=== PATIENT | male | born 1975 | race Hispanic/Latino ===

== ENCOUNTER 2019-06-23 00:34 | Inpatient (IN) ==
[2019-06-23] MEDS ORDERED: ATIVAN IV ONE (00:52)
[2019-06-23] MEDS ORDERED: NS 1,000 ML IV ONE ×2 (00:54→01:55)
[2019-06-23 01:04] LABS: BASO# 0.01 X1000 (0.0-0.2); BASO% 0.1 % (0.0-0.8); EOS# 0.02 X1000 (0.0-0.7); EOS% 0.2 % (0.0-10.0); HEMOGLOBIN 13.4 g/dL (14.0-18.0); IMM GRAN# 0.13 X1000 (0.0-0.04); IMM GRAN% 1.5 % (0.0-0.5); LYMPH% 15.2 % (20.5-51.1); MCH 29.5 PG (27-31); MCHC 31.9 g/dL (33-37); MCV 92.3 FL (81-99); MONO# 0.22 X1000 (0.11-0.59); MONO% 2.6 % (1.7-9.3); MPV 10.2 FL (7.4-10.4); NEUT# 6.88 X1000 (1.4-6.5); NEUT% 80.4 % (42.2-75.2); PLT 252 X1000 (130-400); RBC 4.55 XMIL (4.7-6.1); RDW 11.8 % (11.5-14.5); WBC 8.56 X1000 (4.8-10.8)
[2019-06-23] MEDS ORDERED: ZOFRAN ONE (01:04)
[2019-06-23 01:18] LABS: INR 1.02; PROTIME 13.5 Seconds (11.0-16.0)
--- NOTE | 2019-06-23 01:33 | EKG Report ---
Test Performed on : 06/23/2019 00:46:03 AM Test Reason : pain Blood Pressure : / mmHG Vent. Rate : 102 BPM Atrial Rate : 102 BPM P-R Int : 138 ms QRS Dur : 098 ms QT Int : 370 ms P-R-T Axes : 075 045 059 degrees QTc Int : 482 ms Sinus tachycardia. Minimal voltage criteria for LVH, may be normal variant Nonspecific ST abnormality Abnormal ECG No previous ECGs available Unconfirmed Result
[2019-06-23 01:43] LABS: ACETAMINOPHEN < 1.2 ug/mL (10-30); AGAP 19; ALB/GLOB RATIO 1.9; ALBUMIN 4.5 g/dL (3.5-5.0); ALKALINE PHOSPHATASE 56 U/L (32-122); BUN 15 mg/dL (8-22); CALCIUM 8.6 mg/dL (8.8-10.2); CHLORIDE 97 mmol/L (98-107); COSMO 296; CREATININE 1.3 mg/dL (0.7-1.2); ESTIMATED GFR 49; GLUCOSE 462 mg/dL (70-104); GOT 136 U/L (10-34); GPT 156 U/L (10-44); POTASSIUM 5.7 mmol/L (3.5-5.1); SALICYLATES < 3.00 mg/dL (3-10); SODIUM 138 mmol/L (136-145); TCO2 22 mmol/L (25-35); TOTAL BILIRUBIN 0.24 mg/dL (0.20-1.00); TOTAL PROTEIN 6.9 g/dL (6.3-8.3)
[2019-06-23 01:53] LABS: ALLEN TEST YES; BE -8.8 mmoll (-3.0-3.0); BLOOD TYPE ARTERIAL; HCO3-(ACT) 17.8 mmoll (20.0-26.0); METHB 1.2 % (0.0-1.5); O2(CT) 17.6 mL/dL (15.0-23.0); PO2(98.6) 73 mmHg (60-100); SAMPLE BLOOD; SAO2 94.7 % (95.0-100.0)
[2019-06-23 01:54] LABS: PCO2(98.6) 64 mmHg (35-45); pH(98.6) 7.13 (7.35-7.45)
[2019-06-23 01:55] LABS: MODALITY NRB; O2HB 89.3 % (95.0-99.0)
[2019-06-23] MEDS ORDERED: HUMULIN R IV ONE (01:56)
--- NOTE | 2019-06-23 01:59 | PROVIDER DOCUMENTATION ---
This chart was entered by Tammy Raphael Scribe, acting as scribe for Sav Padgett MD. HPI-General Adult - General Source: EMS - History of Present Illness -Gen Adult Nature of Presenting Problems: Patient is a male who was found unresponsive in a motel room at [place] [address] in [place] who had snorted cocaine. Patient arrives with elevated blood pressure and lethargy. Fingerstick glucose on arrival was 476. Patient has spontaneous eye movement ,responds to verbal stimuli with slurred speech,and moves all extremities purposely. <Sav Padgett - Last Filed: 06/23/19 06:34> <Levi Lowery - Last Filed: 06/23/19 08:37> - General Stated Complaint: unresponsive Time Seen by Provider: 06/23/19 00:41 Review of Systems - Adult - REVIEW OF SYSTEMS - ADULT ROS:: limited per condition <Sav Padgett - Last Filed: 06/23/19 06:34> - REVIEW OF SYSTEMS - ADULT ROS:: limited per condition Constitutional: reports: no symptoms reported Eyes: reports: no symptoms reported Ears, Nose, Mouth & Throat: reports: no symptoms reported Cardiovascular: reports: no symptoms reported Respiratory: reports: no symptoms reported Gastrointestinal: reports: no symptoms reported Genitourinary: reports: no symptoms reported Musculoskeletal: reports: no symptoms reported Integumentary: reports: no symptoms reported Neurological: reports: no symptoms reported Psychiatric: reports: no symptoms reported Endocrine: reports: no symptoms reported Hematologic/Lymphatic: reports: no symptoms reported Allergic/Immunologic: reports: no symptoms reported All Other Systems: Reviewed and Negative <Levi Lowery - Last Filed: 06/23/19 08:37> Past History - Adult - PAST MEDICAL HISTORY-ADULT Review of Records: reports: Old Records Reviewed, Nursing Assessment Review, Medications Reviewed, Social history reviewed & non-contributory. Major Childhood Illnesses: reports: denies history Cardiovascular: reports: denies history Respiratory: reports: denies history Gastrointestinal: reports: denies history Obstetrical/Gynecological: reports: denies history Genitourinary: reports: denies history Musculoskeletal: reports: denies history Neurological: reports: denies history Endocrine/Immune: reports: denies history Other Conditions: reports: denies history <Sav Padgett - Last Filed: 06/23/19 06:34> Physical Exam-General - CONSTITUTIONAL General Appearance: other (agitated, uncooperative) - EYES Eyes: other (PERRL) - HEAD, EARS, NOSE, MOUTH & THROAT HENMT: normocephalic/atraumatic, moist mucous membranes - NECK Neck: supple - RESPIRATORY Respiratory: lungs clear, no respiratory distress, no accessory muscle use - CARDIOVASCULAR Cardiovascular: tachycardia - GASTROINTESTINAL (ABDOMEN) Abdominal Exam: non tender - LYMPHATIC Lymphatic: no adenopathy - MUSCULOSKELETAL Back Exam: no CVA tenderness Extremity: normal range of motion, non-tender - SKIN Integumentary: normal color, normal turgor - NEUROLOGIC Neurologic: grossly normal <Sav Padgett - Last Filed: 06/23/19 06:34> Progress - PLAN OF CARE/RESULTS Result Diagrams: 06/23/19 00:52 06/23/19 00:52 - REASSESSMENT Reassessment #1 Time Reassessed: 06:20 Status: improving Reassessment Comment: continues to be drowsy, improved heart rate and oxygen sat - EKG 1 Time of EKG reading by physician:: 00:47 EKG Read and Signed by:: Sav Padgett Rate: 102 [place]: normal Comments: no STEMI - XRAY 1 XRAY Study: Chest XRAY Interpretation: nad - CHANGE OF SHIFT REPORT (ED Provider) 1 Report Given and Care Transferred to:: Dr. Lowery Items Pending: Labs, Other (reassess patient until patient is awake and stable to d/c, recheck blood glucose) <Sav Padgett - Last Filed: 06/23/19 06:34> - PLAN OF CARE/RESULTS Progress/Plan/Lab Results: Vital Signs - 8 hr 06/23/19 00:41 06/23/19 02:00 06/23/19 03:00 Temperature 98.4 F Pulse Rate 107 H 108 H 119 H Respiratory Rate 20 20 Blood Pressure 132/100 144/92 137/90 O2 Sat by Pulse Oximetry 95 100 100 06/23/19 04:00 06/23/19 05:00 06/23/19 06:00 Temperature Pulse Rate 110 H 107 H 105 H Respiratory Rate 25 H 24 24 Blood Pressure 100/70 110/79 110/79 O2 Sat by Pulse Oximetry 99 100 99 06/23/19 07:22 Temperature Pulse Rate 98 H Respiratory Rate 23 Blood Pressure 128/87 O2 Sat by Pulse Oximetry 95 Laboratory Results - last 24 hr 06/23/19 06/23/19 06/23/19 00:41 00:52 00:52 WBC 8.56 RBC 4.55 L Hgb 13.4 L Hct 42.0 MCV 92.3 MCH 29.5 MCHC 31.9 L RDW Std Deviation 11.8 Plt Count 252 MPV 10.2 Immature Gran % (Auto) 1.5 H Neut % (Auto) 80.4 H Lymph % (Auto) 15.2 L [place] % (Auto) 2.6 Eos % (Auto) 0.2 Baso % (Auto) 0.1 Immature Gran # (Auto) 0.13 H Neut # (Auto) 6.88 H Lymph # (Auto) 1.30 [place] # (Auto) 0.22 Eos # (Auto) 0.02 Baso # (Auto) 0.01 PT INR Specimen Type Sample Site pH pCO2 pO2 HCO3 Base Excess Oxyhemoglobin ABG O2 Sat (Calculated) ABG O2 Saturation ABG Carboxyhemoglobin ABG Methemoglobin Michele Test A-a O2 Difference Total Hemoglobin Lactate Liter Flow Blood Gas Modality FiO2 % Sodium Potassium Chloride Carbon Dioxide Anion Gap BUN Creatinine Estimated GFR/1.73 m2 BUN/Creatinine Ratio Glucose POC Glucose 476 H Calculated Osmolality Calcium Total Bilirubin AST ALT Alkaline Phosphatase Total Protein Albumin Globulin Albumin/Globulin Ratio Urine Source Urine Color Urine Turbidity Urine pH Ur Specific [place] Urine Protein Ur Glucose (Stick) Ur Ketones (Stick) Urine Blood Urine Nitrite Urine Bilirubin Urobilinogen Dipstick Urine Leukocytes Urine WBC (Auto) Urine RBC (Auto) U Epithel Cells (Auto) Urine Bacteria (Auto) Salicylates Urine Opiates Screen Ur Oxycodone Screen Ur Methadone, Qual Acetaminophen Ur Barbiturates Screen Ur Phencyclidine Scrn Ur Amphetamines Screen U Benzodiazepines Scrn Urine Cocaine Screen U Cannabinoids Screen Plasma/Serum Ethyl Alc 73 H 06/23/19 06/23/19 06/23/19 00:52 00:52 01:44 WBC RBC Hgb Hct MCV MCH MCHC RDW Std Deviation Plt Count MPV Immature Gran % (Auto) Neut % (Auto) Lymph % (Auto) [place] % (Auto) Eos % (Auto) Baso % (Auto) Immature Gran # (Auto) Neut # (Auto) Lymph # (Auto) [place] # (Auto) Eos # (Auto) Baso # (Auto) PT 13.5 INR 1.02 Specimen Type ARTERIAL Sample Site R BRACHIAL pH 7.13 L* pCO2 64 H* pO2 73 HCO3 17.8 L Base Excess -8.8 L Oxyhemoglobin 89.3 L* ABG O2 Sat (Calculated) 17.6 ABG O2 Saturation 94.7 L ABG Carboxyhemoglobin 4.50 H ABG Methemoglobin 1.2 Michele Test YES A-a O2 Difference 560.0 Total Hemoglobin 14.0 Lactate 5.40 H* Liter Flow 15.0 Blood Gas Modality NRB FiO2 % 100.0 Sodium 138 Potassium 5.7 H Chloride 97 L Carbon Dioxide 22 L Anion Gap 19 BUN 15 Creatinine 1.3 H Estimated GFR/1.73 m2 49 BUN/Creatinine Ratio 12 Glucose 462 H* POC Glucose Calculated Osmolality 296 Calcium 8.6 L Total Bilirubin 0.24 AST 136 H ALT 156 H Alkaline Phosphatase 56 Total Protein 6.9 Albumin 4.5 Globulin 2.4 Albumin/Globulin Ratio 1.9 Urine Source Urine Color Urine Turbidity Urine pH Ur Specific [place] Urine Protein Ur Glucose (Stick) Ur Ketones (Stick) Urine Blood Urine Nitrite Urine Bilirubin Urobilinogen Dipstick Urine Leukocytes Urine WBC (Auto) Urine RBC (Auto) U Epithel Cells (Auto) Urine Bacteria (Auto) Salicylates < 3.00 L Urine Opiates Screen Ur Oxycodone Screen Ur Methadone, Qual Acetaminophen < 1.2 L Ur Barbiturates Screen Ur Phencyclidine Scrn Ur Amphetamines Screen U Benzodiazepines Scrn Urine Cocaine Screen U Cannabinoids Screen Plasma/Serum Ethyl Alc 06/23/19 06/23/19 06/23/19 02:46 02:46 02:55 WBC RBC Hgb Hct MCV MCH MCHC RDW Std Deviation Plt Count MPV Immature Gran % (Auto) Neut % (Auto) Lymph % (Auto) [place] % (Auto) Eos % (Auto) Baso % (Auto) Immature Gran # (Auto) Neut # (Auto) Lymph # (Auto) [place] # (Auto) Eos # (Auto) Baso # (Auto) PT INR Specimen Type Sample Site pH pCO2 pO2 HCO3 Base Excess Oxyhemoglobin ABG O2 Sat (Calculated) ABG O2 Saturation ABG Carboxyhemoglobin ABG Methemoglobin Michele Test A-a O2 Difference Total Hemoglobin Lactate Liter Flow Blood Gas Modality FiO2 % Sodium Potassium Chloride Carbon Dioxide Anion Gap BUN Creatinine Estimated GFR/1.73 m2 BUN/Creatinine Ratio Glucose POC Glucose 114 H D Calculated Osmolality Calcium Total Bilirubin AST ALT Alkaline Phosphatase Total Protein Albumin Globulin Albumin/Globulin Ratio Urine Source CLEAN CATCH Urine Color STRAW Urine Turbidity CLEAR Urine pH 5.5 Ur Specific [place] 1.009 Urine Protein TRACE A Ur Glucose (Stick) >1000 A Ur Ketones (Stick) NEGATIVE Urine Blood SMALL A Urine Nitrite NEGATIVE Urine Bilirubin NEGATIVE Urobilinogen Dipstick NORMAL Urine Leukocytes NEGATIVE Urine WBC (Auto) <10 Urine RBC (Auto) <10 U Epithel Cells (Auto) <10 Urine Bacteria (Auto) NEGATIVE Salicylates Urine Opiates Screen NONE DETECTED Ur Oxycodone Screen NONE DETECTED Ur Methadone, Qual NONE DETECTED Acetaminophen Ur Barbiturates Screen NONE DETECTED Ur Phencyclidine Scrn NONE DETECTED Ur Amphetamines Screen PRESUMPTIVE POSITIVE A U Benzodiazepines Scrn NONE DETECTED Urine Cocaine Screen NONE DETECTED U Cannabinoids Screen NONE DETECTED Plasma/Serum Ethyl Alc 06/23/19 06/23/19 06/23/19 06:34 06:37 06:50 WBC RBC Hgb Hct MCV MCH MCHC RDW Std Deviation Plt Count MPV Immature Gran % (Auto) Neut % (Auto) Lymph % (Auto) [place] % (Auto) Eos % (Auto) Baso % (Auto) Immature Gran # (Auto) Neut # (Auto) Lymph # (Auto) [place] # (Auto) Eos # (Auto) Baso # (Auto) PT INR Specimen Type ARTERIAL Sample Site L RADIAL pH 7.33 L pCO2 52 H* pO2 156 H HCO3 25.3 Base Excess 0.5 Oxyhemoglobin 96.3 ABG O2 Sat (Calculated) 20.4 ABG O2 Saturation 99.4 ABG Carboxyhemoglobin 1.70 ABG Methemoglobin 1.4 Michele Test YES A-a O2 Difference 492.0 Total Hemoglobin 14.9 Lactate 0.80 Liter Flow 15.0 Blood Gas Modality NRB FiO2 % 100.0 Sodium 142 Potassium 4.6 D Chloride 104 Carbon Dioxide 27 Anion Gap 11 BUN 11 Creatinine 1.0 Estimated GFR/1.73 m2 > 60 BUN/Creatinine Ratio 11 Glucose 77 D POC Glucose 79 Calculated Osmolality 281 Calcium 7.9 L Total Bilirubin AST ALT Alkaline Phosphatase Total Protein Albumin Globulin Albumin/Globulin Ratio Urine Source Urine Color Urine Turbidity Urine pH Ur Specific [place] Urine Protein Ur Glucose (Stick) Ur Ketones (Stick) Urine Blood Urine Nitrite Urine Bilirubin Urobilinogen Dipstick Urine Leukocytes Urine WBC (Auto) Urine RBC (Auto) U Epithel Cells (Auto) Urine Bacteria (Auto) Salicylates Urine Opiates Screen Ur Oxycodone Screen Ur Methadone, Qual Acetaminophen Ur Barbiturates Screen Ur Phencyclidine Scrn Ur Amphetamines Screen U Benzodiazepines Scrn Urine Cocaine Screen U Cannabinoids Screen Plasma/Serum Ethyl Alc Orders Category Date Time Status Cardiac Monitoring DIRECTED Care 06/23/19 00:50 Active FSBS/Accucheck Result Q1H Care 06/23/19 01:56 Active Restraint Init/Renew Violent ONCE Care 06/23/19 00:51 Active Regular Diet Diet 06/23/19 06:47 Active CHEST-PORTABLE [RAD] Stat Exams 06/23/19 00:[address] HEAD W/O CONTRAST [CT] Stat Exams 06/23/19 00:55 Completed ABG [RESP] Routine Lab 06/23/19 01:44 Completed ABG [RESP] Routine Lab 06/23/19 06:34 Completed ACETAMINOPHEN [TDM] Stat Lab 06/23/19 00:52 Completed ALCOHOL BLOOD Stat Lab 06/23/19 00:52 Completed BMP [BASIC METABOLIC PANEL] [CHEM] Stat Lab 06/23/19 06:50 Completed CBC WITH ELECTRONIC DIFF [HEME] Stat Lab 06/23/19 00:52 Completed CMP [COMPREHENSIVE METABOLIC PANEL] [CHEM] Stat Lab 06/23/19 00:52 Completed PT [PROTIME WITH INR] [COAG] Stat Lab 06/23/19 00:52 Completed SALICYLATES [TDM] Stat Lab 06/23/19 00:52 Completed UA NIMS W/REFLEX CULT [URINALYSIS] Stat Lab 06/23/19 02:46 Completed URINE DRUG SCREEN Stat Lab 06/23/19 02:46 Completed 0.9% Sodium Chloride Inj [Ns] 1,000 ml Med 06/23/19 00:54 Discontinued IV 999 mls/hr 0.9% Sodium Chloride Inj [Ns] 1,000 ml Med 06/23/19 01:55 Discontinued IV 999 mls/hr Insulin Human Regular [Humulin R] Med 06/23/19 01:56 Discontinued 12 unit IV NOW ONE Lorazepam [Ativan] Med 06/23/19 00:52 Discontinued 1 mg IV NOW ONE Ondansetron [Zofran] Med 06/23/19 01:04 Discontinued 4 mg .ROUTE .STK-MED ONE EKG [EKG] Stat Ther 06/23/19 00:58 Draft Result Diagrams: 06/23/19 00:52 06/23/19 06:50 - REASSESSMENT Reassessment #2 Time Reassessed: 08:35 Status: improving (Seen and examined by me. Case discussed with Dr. Padgett at shift change. DARYN Bright hospitalist here for admission) - CONSULTS/PCP/HOSPITALIST Notification #1 *Consult/PCP/Hospitalist*: Yefri Time Discussed: 08:36 Consult Disposition: Will see in ED, Admit <Levi Lowery - Last Filed: 06/23/19 08:37> Departure - Departure Certified Medical Emergency: Emergent <Sav Padgett - Last Filed: 06/23/19 06:34> - Departure Date of Disposition Decision: 06/23/19 Time of Disposition Decision: 08:36 - Critical Care Note This patient required my direct & personal management of CC.: No <Levi Lowery - Last Filed: 06/23/19 08:37> - Departure DIAGNOSIS: Cocaine abuse, Hyperglycemia, Alcohol use disorder, Acute respiratory acidosis Altered mental state Qualifiers: Altered mental status type: unspecified Qualified Code(s): R41.82 - Altered mental status, unspecified Disposition: ADMITTED INPATIENT 09 Condition: Stable Referrals and Follow-Ups: None,PCP [NON-STAFF PROVIDER] - Attestation - Physician/ MANNY Attestation Patient care was provided by Advanced Practice Provider:: No The physician spent face to face time with patient:: Yes Advanced Practice Provider documentation review:: Supervising physician onsite and consulted in the evaluation and care of this patient. The physician did have a face to face encounter with the patient. <Sav Padgett - Last Filed: 06/23/19 06:34> - Physician/ MANNY Attestation Patient care was provided by Advanced Practice Provider:: No The physician spent face to face time with patient:: Yes Advanced Practice Provider documentation review:: Supervising physician onsite and consulted in the evaluation and care of this patient. The physician did have a face to face encounter with the patient. <Levi Lowery - Last Filed: 06/23/19 08:37> This chart was documented by the indicated scribe, (Tammy Raphael Scribe) and accurately reflects the services I performed and decisions made by me, Sav Padgett MD, as attested by the provider's signature.
[2019-06-23 02:56] LABS: URINE SOURCE CLEAN CATCH
[2019-06-23 03:01] LABS: BILIRUBIN URINE NEGATIVE (NEGATIVE); BLOOD URINE SMALL (NEGATIVE); COLOR STRAW; GLUCOSE URINE >1000 mg/dL (NEGATIVE); KETONE URINE NEGATIVE (NEGATIVE); LEUKOCYTES URINE NEGATIVE (NEGATIVE); NITRITE URINE NEGATIVE (NEGATIVE); PH URINE 5.5; PROTEIN URINE TRACE mg/dL (NEGATIVE); SP GRAVITY URINE 1.009; TURBIDITY URINE CLEAR (CLEAR); UR EPITHELIAL CELLS <10 /HPF (<10); URINE BACTERIA NEGATIVE /HPF; URINE RBC <10 /HPF (<10); URINE WBC <10 /HPF (<10); UROBILINOGEN URINE NORMAL (NORMAL)
[2019-06-23 03:39] LABS: UR AMPHETAMINES QUAL PRESUMPTIVE POSITIVE (NONE DETECT); UR BARBITUATES QUAL NONE DETECTED (NONE DETECT); UR BENZODIAZEPIN QUAL NONE DETECTED (NONE DETECT); UR CANNABINOIDS QUAL NONE DETECTED (NONE DETECT); UR COCAINE QUAL NONE DETECTED (NONE DETECT); UR METHADONE QUAL NONE DETECTED (NONE DETECT); UR OPIATES QUAL NONE DETECTED (NONE DETECT); UR OXYCODONE QUAL NONE DETECTED (NONE DETECT); UR PCP QUAL NONE DETECTED (NONE DETECT)
--- NOTE | 2019-06-23 06:28 | Diag Imaging Result Doc PS360 ---
CT HEAD W/O CONTRAST - 06/23/2019 INDICATION: AMS COMPARISON: None FINDINGS: The ventricles and sulci are normal in size and contour. No intracranial mass or hemorrhage. The skull is intact. The sinuses mastoids and middle ears are clear. IMPRESSION: Negative exam. This exam was performed using automated exposure control, adjustment of mA or kV according to patient size, and/or use of iterative reconstruction technique Electronically signed by Joshua Walter 06/23/2019 6:25 AM
[2019-06-23 06:45] LABS: ALLEN TEST YES; BE 0.5 mmoll (-3.0-3.0); BLOOD TYPE ARTERIAL; HCO3-(ACT) 25.3 mmoll (20.0-26.0); METHB 1.4 % (0.0-1.5); O2(CT) 20.4 mL/dL (15.0-23.0); O2HB 96.3 % (95.0-99.0); PO2(98.6) 156 mmHg (60-100); SAMPLE BLOOD; SAO2 99.4 % (95.0-100.0); THB 14.9 g/dL (11.5-17.4); pH(98.6) 7.33 (7.35-7.45)
[2019-06-23 06:54] LABS: MODALITY NRB; PCO2(98.6) 52 mmHg (35-45)
[2019-06-23 07:38] LABS: AGAP 11; BUN 11 mg/dL (8-22); CALCIUM 7.9 mg/dL (8.8-10.2); CHLORIDE 104 mmol/L (98-107); COSMO 281; ESTIMATED GFR > 60; GLUCOSE 77 mg/dL (70-104); POTASSIUM 4.6 mmol/L (3.5-5.1); SODIUM 142 mmol/L (136-145); TCO2 27 mmol/L (25-35)
--- NOTE | 2019-06-23 07:44 | Diag Imaging Result Doc PS360 ---
EXAM: CHEST-PORTABLE INDICATION: AMS TECHNIQUE: One view COMPARISON: None. FINDINGS: Inspiration is suboptimal. The lungs are grossly clear. There is no discrete pleural fluid collection or pneumothorax. The cardiomediastinal silhouette and central vasculature are grossly unremarkable. IMPRESSION: No evidence of acute pathology by plain radiograph. Electronically signed by Jonh Kent 06/23/2019 7:41 AM
[2019-06-23 09:12] LABS: HEMOGLOBIN A1C 5.3 % (4.8-6.0)
[2019-06-23] MEDS ORDERED: TYLENOL PO PRN (09:44)
[2019-06-23] MEDS ORDERED: ZOFRAN IV PRN (09:44)
[2019-06-23] MEDS: LEVAQUIN 750 MG/D5W 750 MG/150 ML IVPB IV SCH (10:01)
[2019-06-23] MEDS: NS 1,000 ML IV SCH (10:02)
[2019-06-23 10:05] LABS: EOS# 0.03 X1000 (0.0-0.7); EOS% 0.3 % (0.0-10.0); HEMATOCRIT 45.1 % (42.0-52.0); HEMOGLOBIN 14.9 g/dL (14.0-18.0); IMM GRAN# 0.03 X1000 (0.0-0.04); IMM GRAN% 0.3 % (0.0-0.5); LYMPH# 0.67 X1000 (1.2-3.4); LYMPH% 5.9 % (20.5-51.1); MCH 29.8 PG (27-31); MCV 90.2 FL (81-99); MONO% 5.2 % (1.7-9.3); MPV 10.2 FL (7.4-10.4); NEUT# 10.11 X1000 (1.4-6.5); NEUT% 88.3 % (42.2-75.2); PLT 229 X1000 (130-400); RDW 12.1 % (11.5-14.5); WBC 11.44 X1000 (4.8-10.8)
[2019-06-23 10:32] LABS: AGAP 8; BUN 10 mg/dL (8-22); CALCIUM 8.3 mg/dL (8.8-10.2); CHLORIDE 100 mmol/L (98-107); COSMO 274; CREATININE 0.9 mg/dL (0.7-1.2); ESTIMATED GFR > 60; GLUCOSE 83 mg/dL (70-104); POTASSIUM 4.6 mmol/L (3.5-5.1); SODIUM 138 mmol/L (136-145); TCO2 30 mmol/L (25-35)
--- NOTE | 2019-06-23 10:37 | Diag Imaging Result Doc PS360 ---
CHEST-2 VIEWS - 06/23/2019 INDICATION: ?pneumonia COMPARISON: 1:20 AM FINDINGS: There are extensive bilateral central and basilar infiltrates. Heart size remains top normal. No pneumothorax or pleural effusion. IMPRESSION: Extensive bilateral infiltrates compatible with multilobar pneumonia or viral infection. Electronically signed by Joshua Walter 06/23/2019 10:35 AM
[2019-06-23 10:42] LABS: LYMPHS 5 % (21-51); MONO 3 % (1-9); SEGS 92 % (42-75)
--- NOTE | 2019-06-23 10:45 | HISTORY AND PHYSICAL ---
CHIEF COMPLAINT: Unresponsive. HISTORY OF PRESENT ILLNESS: This is a 44-year-old gentleman who was found unresponsive in a motel room in [place] by his friends. The friends stated that the patient had snorted cocaine. It is documented in the triage that [facility] reported friends did CPR on the scene prior to their arrival. It is documented that the patient was given 2 mg of Narcan per [facility]. He arrived to the ED with 100% non-rebreather mask with a nasal trumpet in place. The patient removed the nasal trumpet and the non-rebreather shortly after arriving in the ER. The patient woke up after arrival to the ER. He reportedly admitted that he drank alcohol, took pain pills and snorted cocaine, although his drug screen was only presumptive positive for amphetamines. At the time of my exam, the patient is awake, he is alert. He states that he drank alcohol when asked how much, he states "a lot over the weekend". He denies taking any pills or snorting any pills. He did state that he got "some of those little bottles at the [employer] and drank them", although he is unable to tell with the name of the little bottles. He denies a prior drug history use. He denies any prior health history are any regular medications. PAST MEDICAL HISTORY: He denies. PAST SURGICAL HISTORY: He denies. SOCIAL HISTORY: He denies tobacco use. He does state he drinks alcohol after working on weekends. ALLERGIES: He denies any allergies. HOME MEDICATION: He denies. REVIEW OF SYSTEMS: Discussed with the patient with pertinent positives stated in HPI. He denied any syncope, dizziness, any chest pain or palpitations, any fever, chills, shortness of breath, any PND, orthopnea, any nausea, vomiting, diarrhea, constipation, black or bloody vomitus or stools, hematuria, dysuria, frequency or urgency. PHYSICAL EXAMINATION: GENERAL: This is a 44-year-old gentleman who is lying on the bed in the emergency room, in no distress. VITAL SIGNS: Blood pressure is 128/87 with a heart rate of 106, respirations are 20 to 22, temperature is 98.3 with O2 saturation that are 90 to 94 percent on 2 L nasal cannula, they are 87 to 88 percent on room air. EYES: Pupils equal, round, react to light. EOMs are intact. Sclerae anicteric. HEENT: Head is normocephalic, atraumatic. Mucous membranes are moist. NECK: Supple with trachea midline. CARDIOVASCULAR: Regular rate and rhythm. He is tachycardic. S1 and S2 appreciated. No murmur. He has no lower extremity edema. Peripheral pulses palpable x4 extremities. PULMONARY: Breath sounds are diminished throughout with right greater than left. He does have some rhonchi in the right upper and middle lobes that do not clear to cough. Chest rises and falls symmetrically with respiration. Chest wall is nontender to palpation. GASTROINTESTINAL: Abdomen is soft, nontender, nondistended with bowel sounds in all 4 quadrants. GENITOURINARY: No CVA and nor suprapubic tenderness. NEUROLOGIC: He is alert and oriented. SKIN: Warm and dry. LABORATORY DATA: WBC is 8.5 with hemoglobin 13.4, hematocrit 42, and platelets of 252,000. INR is 1.02. Sodium 138, potassium 5.7, and BUN 15, creatinine 1.3 with a glucose of 462. AST is 136, ALT 156, alkaline phosphatase is 56. Urinalysis is essentially negative. Urine drug screen is presumptive positive for amphetamines. Blood alcohol is 73 with salicylate less than 3 and acetaminophen less than 1.2. IMAGIN. CT of the head revealed negative exam, ventricles and sulci are normal in size and contour. No intracranial mass or hemorrhage. The skull is intact. Sinus, mastoids and middle ears are clear. 2. Next chest x-ray revealed no evidence of acute pathology. Lungs are grossly clear. Inspiration is suboptimal. There is no discrete pleural fluid collection or pneumothorax. ASSESSMENT AND PLAN: 1. Unresponsive. This is resolved. 2. Alcohol use and abuse. monitor for withdrawal. 3. Acute hypoxemic respiratory failure. 4. Acute hypercapnic respiratory failure. continue with supplemental oxygen. 5. Acute hypercapnic respiratory failure number. 6. Questionable illicit drug use in a patient who admitted to taking cocaine and pain medication, whose drug screen is presumptive positive for amphetamines. telemetry. 7. Questionable pneumonia. possible aspiration given the reported events leading to the ER. He continues to be hypoxemic - requiring O2 with rhonchi. Repeat a CBC and a CMP and CXR. Antibiotic coverage of Levaquin at present. 8. Hyperglycemia. The patient states he has never been diagnosed as having diabetes or told he had high blood sugar. Check hemoglobin A1c as well as pattern blood glucoses. 9. Start incentive spirometer q.4 hours. 10. Further treatments pending hospital course. Dictated by DARYN Haro for Joel Garcia MD cc: DARYN Haro MD [facility]
[2019-06-23] MEDS: FLAGYL 500 MG/NS 500 MG/100 ML IVPB IV SCH ×2 (13:54→20:59)
[2019-06-23 15:31] LABS: CK INDEX 1.6 (0.0-2.5); CK-MB 12.39 ng/mL (0.0-5.0)
--- NOTE | 2019-06-23 16:51 | HISTORY AND PHYSICAL ---
SUBJECTIVE: Briefly, this is a 44-year-old male, I do not think he really has major medical problems. He is here from [facility]. He has been here for about 2 to 3 months. He is working construction. Reportedly, there was a concern he was snorting cocaine, then he became unresponsive. He was given CPR. He came in. He was somewhat hypoxic. His initial x-ray was negative, but the repeat had interstitial infiltrates was proBNP is mildly elevated at 301 but nonspecific. His troponin was elevated and the MB was elevated, but I do not know if this is related to his troponin coming to the myocardial issues. PLAN: Will be to treat for possible pneumonia, aspiration type. He has not had a fever or anything to that effect. We will get echo, serial enzymes. Cardiology consult if needed. DISPOSITION: Disposition pending clinical status. cc: Joel Garcia MD
--- NOTE | 2019-06-23 18:02 | Diag Imaging Result Doc PS360 ---
CT THORAX W/CONTRAST - 06/23/2019 INDICATION: hypoxia COMPARISON: Prior chest x-ray FINDINGS: There is no adenopathy. Heart and great vessels are normal. Upper abdominal images are normal. There are extensive bilateral multilobar infiltrates involving every lobe. This is identical to the recent chest x-ray. No pneumothorax or pleural effusion. Bones are intact and well mineralized. IMPRESSION: Extensive bilateral infiltrates. Compatible with pneumonia or viral infection. This exam was performed using automated exposure control, adjustment of mA or kV according to patient size, and/or use of iterative reconstruction technique Electronically signed by Joshua Walter 06/23/2019 5:59 PM
[2019-06-23 19:48] LABS: CK INDEX 1.3 (0.0-2.5); CK-MB 7.69 ng/mL (0.0-5.0)
[2019-06-23 22:39] LABS: CK INDEX 1.1 (0.0-2.5); CK-MB 5.78 ng/mL (0.0-5.0)
[2019-06-24] MEDS: FLAGYL 500 MG/NS 500 MG/100 ML IVPB IV SCH ×4 (00:33→19:53)
[2019-06-24] MEDS: NS 1,000 ML IV SCH ×2 (04:50→17:36)
[2019-06-24] MEDS: PRILOSEC PO SCH (06:02)
[2019-06-24 08:12] LABS: BASO# 0.01 X1000 (0.0-0.2); BASO% 0.1 % (0.0-0.8); EOS# 0.01 X1000 (0.0-0.7); EOS% 0.1 % (0.0-10.0); HEMATOCRIT 39.8 % (42.0-52.0); HEMOGLOBIN 12.9 g/dL (14.0-18.0); IMM GRAN# 0.03 X1000 (0.0-0.04); IMM GRAN% 0.2 % (0.0-0.5); LYMPH# 1.51 X1000 (1.2-3.4); LYMPH% 10.9 % (20.5-51.1); MCH 29.6 PG (27-31); MCHC 32.4 g/dL (33-37); MCV 91.3 FL (81-99); MONO% 7.9 % (1.7-9.3); MPV 10.4 FL (7.4-10.4); NEUT# 11.24 X1000 (1.4-6.5); NEUT% 80.8 % (42.2-75.2); PLT 199 X1000 (130-400); RBC 4.36 XMIL (4.7-6.1); RDW 12.1 % (11.5-14.5)
[2019-06-24 08:26] LABS: AGAP 7; BUN 8 mg/dL (8-22); CALCIUM 8.8 mg/dL (8.8-10.2); CHLORIDE 101 mmol/L (98-107); COSMO 271; CREATININE 1.1 mg/dL (0.7-1.2); ESTIMATED GFR > 60; GLUCOSE 105 mg/dL (70-104); POTASSIUM 3.8 mmol/L (3.5-5.1); SODIUM 136 mmol/L (136-145); TCO2 28 mmol/L (25-35)
--- NOTE | 2019-06-24 09:50 | ECHO REPORT ---
ORDER DATE: 06/23/2019 INDICATION: CHF. FINDINGS: 1. The right atrium appears normal in size. 2. Mild tricuspid regurgitation. RV systolic pressure of 55, suggesting pulmonary hypertension. 3. Normal RV size and systolic function. 4. No significant pulmonic insufficiency. 5. Normal left atrial size with a volume index of 23. 6. No mitral valve prolapse. Trace mitral regurgitation. 7. Normal LV size, end-diastolic dimension of 4.8 cm. Normal wall thicknesses with a posterior and interventricular septal wall thickness of 1.1 cm each. Normal LV systolic function. Estimated EF of 60% with normal wall motion. Normal diastolic function. 8. The aortic valve opens well. It is trileaflet. No evidence of stenosis or insufficiency. 9. The aorta appears normal on visualized segments. 10. No pericardial effusion seen. cc: MD Joel Torres MD
[2019-06-24] MEDS: LEVAQUIN 750 MG/D5W 750 MG/150 ML IVPB IV SCH (11:15)
--- NOTE | 2019-06-24 14:44 | CARDIOLOGY CONSULTATION ---
DATE: 06/24/2019 CHIEF COMPLAINT ON PRESENTATION: Apparently being unresponsive. HISTORY OF PRESENT ILLNESS: Mr. Dooley is a 44-year-old, gentleman who was found unresponsive in a motel room. There were apparently some illicit substances being used, possibly cocaine. However, his drug screen came back positive for amphetamines and not cocaine. [facility] [employer] [facility] reported that he had CPR performed by friends on scene prior to arrival. He was given 2 mg of Narcan and arrived on have 100% nonrebreather. Patient apparently woke up, removed the nasal trumpet and the nonrebreather. He apparently had a positive alcohol level as well. He seems awake and alert. At the time of my presentation, he is not complaining of any pain complaints. He denies any fevers. He says he has had some issues with cough. PAST MEDICAL HISTORY: None. SOCIAL HISTORY: No tobacco use. Apparent alcohol use as well as illicit substances, being at least amphetamines. FAMILY HISTORY: Hypertension. REVIEW OF SYSTEMS: A 10 system review of systems is negative except for those things mentioned in the HPI. PHYSICAL EXAMINATION: The patient's T-max during this hospitalization was 99.7, heart rate is 89, his blood pressure is 111/62. Presenting blood pressure was 132/100. His O2 saturations have been reduced. He had an 89% O2 saturation this morning at 7:55. That was on room air. Most recent was 100% on nasal cannula at 2 L. General: No acute distress. HEENT: Oropharynx is moist. Normal dentition. Eye examination shows pink conjunctivae and white sclerae. Neck Examination: Shows no obvious thyromegaly or thyroid tenderness. Cardiovascular: He sounds to be in a regular rate and rhythm. He has no murmurs. He has no S3. He has no lower extremity edema. Chest Examination: Has diffuse rales throughout all lung ladd. He has no increased work of breathing. Abdomen: Soft, nontender, nondistended. No obvious organomegaly. Skin Examination: Warm and dry throughout, without any rashes. Neurological: He is moving all extremities well. He has no lateralizing deficits. PERTINENT DATA: His echocardiogram demonstrates an EF of 60%, normal wall thicknesses, an RV systolic pressure of 55, suggesting pulmonary hypertension. That study was read by me earlier this morning. His electrocardiogram demonstrates evidence for LVH, mild sinus tachycardia. Tracing reviewed by me. His initial chest x-ray was performed at 1:14 a.m., subsequently repeated at 10:28 a.m. The repeat chest x-ray showed extensive bilateral infiltrates compatible with multilobar pneumonia or possible viral infection. Chest CT was performed, showing extensive bilateral infiltrates, again compatible with pneumonia or viral infection. Head CT was negative. Lab data shows a white count of 13.9, hematocrit 39, platelet count 199,000. Sodium 136, potassium is 3.8, BUN 8, creatinine is 1.1. His troponin initially was 100, subsequent 82, and then 81. Initial check at 1356, last check at 2120. His CK-MB initially was 12.4, came down to 5.7. All indices were normal and below 2. He did have a urinalysis done that had greater than 1000 glucose. UDS had positive amphetamines. Serum alcohol level was 73. ASSESSMENT: Mr. Dooley is a 44-year-old gentleman who came in unresponsive. Since then, he has had extensive infiltrates identified on a CT along with hypoxia. PLAN: His troponin does not indicate acute coronary syndrome. 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 Unclear what exactly was going on while the patient was down in his motel room but likely had poor perfusion during that time period. He has a normal ejection fraction. His EKG does not demonstrate any evidence of ischemic changes. Presently, we will place him on an aspirin but otherwise would not treat this as acute coronary syndrome. He is presently being worked up for a possible infectious etiology. I have discussed the case with the primary team. They are pursuing viral cultures. cc: Chinedu Rosenberg MD
--- NOTE | 2019-06-24 17:19 | Diag Imaging Result Doc PS360 ---
EXAM: CHEST-1 VIEW HISTORY: respiratory failure TECHNIQUE: Single view. COMPARISON: 06/23/2019 FINDINGS: There has been significant improvement in the dense consolidation throughout the left lung. Right mid lung infiltrate appears more consolidated. There is improved aeration of right lung base.. No pleural effusions. There is stable cardiomegaly. IMPRESSION: Improving left lung infiltrate and right basilar infiltrate. Right mid lung infiltrate appears more consolidated. Electronically signed by Andressa Silverman 06/24/2019 5:17 PM
--- NOTE | 2019-06-24 19:04 | PROGRESS NOTE ---
DATE: 06/24/2019 SUBJECTIVE: The patient as no major complaints. OBJECTIVE: Vital signs: Blood pressure is 105/55, heart rate of 83, respiratory 17, temperature 97.8 degrees, 97% on 2 L. Cardiovascular: Regular rate and rhythm. Pulmonary: Bilateral breath sounds, clear to auscultation. GI: Soft, nontender, nondistended. Bowel sounds are positive. LABORATORY DATA: White count is 13, hemoglobin and hematocrit 12 and 39, platelets 199,000. Basic was normal. CT shows an interstitial type pneumonia, but I think it could be possibly an aspiration event. Dr. Rosenberg, I think, was concerned about COVID infection. He has not had a fever. I think it is unlikely. I have gone ahead and done the testing, but I am not sure if we necessarily need to wait on the results, 72 hours at this point, before discharge. The main barrier to discharge is just this persistent O2 requirement. He does not have a cardiac issue. Echo looks good. His x- ray is already improving. Could be an aspiration event. In any case, we will continue empiric antibiotics. I have also asked for a Pulmonary opinion and we will continue to follow closely, but I think this is less likelihood to be COVID-19, more likely aspiration or certainly an acute pulmonary edema event. Appreciate health and wellness sales consultant's information. cc: Joel Garcia MD
--- NOTE | 2019-06-24 21:45 | PULMONOLOGY CONSULTATION ---
DATE: 06/24/2019 REQUESTING CLINICIAN: Dr. Garcia. REASON FOR CONSULTATION: Possible viral pneumonia or COVID-19 infection. HISTORY OF PRESENT ILLNESS: Mr. 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 He was found unresponsive at a hotel by colleagues, and by report he had been using cocaine. The patient was brought to the emergency room and was hypertensive. He was also hyperglycemic. He had significant lactic acidosis. He received Narcan by [facility] and woke up after arrival to the emergency room. He had hypoxemic respiratory failure and underwent a CT scan of the thorax, which revealed diffuse bilateral infiltrates after an initial chest x-ray was clear. His oxygen requirements have rapidly decreased. PAST MEDICAL HISTORY: 1. No chronic medical conditions. 2. No prior surgical conditions. SOCIAL HISTORY: Occasional alcohol use. Intermittent tobacco use. Drug use as noted in the HPI. FAMILY HISTORY: Noncontributory to current presentation. PHYSICAL EXAMINATION: Physical exam reveals a well-developed, well-nourished male who appears his stated age. Blood pressure 105/55, heart rate 83, respiratory rate 17, oxygen saturation 97% on 2 L per nasal cannula.HEENT: Pupils are equal and reactive. Oropharynx is clear. Neck is supple. Chest reveals crackles bilaterally, left greater than right. Cardiac exam: S1, S2. Abdomen is soft. Extremities without edema. DIAGNOSTIC DATA: Chest x-ray today reveals significant improvement compared to yesterday's x-ray. Microbiology reveals negative blood cultures. IMPRESSION: A 44-year-old who presented to the emergency room with altered mental status, hypertension, substance abuse, and a chest x-ray which was initially clear. Within 8 hours he had diffuse bilateral infiltrates, which were confirmed on CT scan. These infiltrates are improving. He has remained afebrile this entire hospitalization. DISCUSSION: A 44-year-old with problems outlined above. The patient's presentation is most consistent with an acute lung injury either due to a hypertensive crisis or due to an aspiration event. Viral pneumonia is felt to be less likely. COVID-19 is not expected, given his rapid improvement and lack of fevers. RECOMMENDATIONS: 1. Wean oxygen as tolerated. 2. Follow up chest x-ray tomorrow. 3. Consider discharge on antibiotics such as Augmentin for 1 week. cc: Abdirahman Beltrán MD
[2019-06-25] MEDS: FLAGYL 500 MG/NS 500 MG/100 ML IVPB IV SCH ×3 (01:16→16:24)
[2019-06-25] MEDS: PRILOSEC PO SCH (06:12)
[2019-06-25 07:33] LABS: BASO# 0.01 X1000 (0.0-0.2); BASO% 0.1 % (0.0-0.8); EOS# 0.05 X1000 (0.0-0.7); EOS% 0.4 % (0.0-10.0); HEMATOCRIT 39.7 % (42.0-52.0); HEMOGLOBIN 12.9 g/dL (14.0-18.0); IMM GRAN# 0.02 X1000 (0.0-0.04); IMM GRAN% 0.2 % (0.0-0.5); LYMPH# 1.33 X1000 (1.2-3.4); LYMPH% 11.8 % (20.5-51.1); MCH 29.6 PG (27-31); MCHC 32.5 g/dL (33-37); MCV 91.1 FL (81-99); MONO# 0.97 X1000 (0.11-0.59); MONO% 8.6 % (1.7-9.3); MPV 10.2 FL (7.4-10.4); NEUT# 8.92 X1000 (1.4-6.5); NEUT% 78.9 % (42.2-75.2); PLT 214 X1000 (130-400); RBC 4.36 XMIL (4.7-6.1); RDW 12.2 % (11.5-14.5)
[2019-06-25] MEDS: NS 1,000 ML IV SCH ×2 (08:15→11:18)
[2019-06-25 08:19] LABS: AGAP 9; BUN 8 mg/dL (8-22); CALCIUM 9.1 mg/dL (8.8-10.2); CHLORIDE 104 mmol/L (98-107); COSMO 278; ESTIMATED GFR > 60; GLUCOSE 111 mg/dL (70-104); POTASSIUM 4.5 mmol/L (3.5-5.1); SODIUM 140 mmol/L (136-145); TCO2 27 mmol/L (25-35)
[2019-06-25] MEDS ORDERED: ASPIRIN PO SCH (09:00)
[2019-06-25] MEDS: LEVAQUIN 750 MG/D5W 750 MG/150 ML IVPB IV SCH (13:07)
--- NOTE | 2019-06-25 13:11 | Diag Imaging Result Doc PS360 ---
CHEST-1 VIEW - 06/25/2019 INDICATION: pneumonia COMPARISON: 06/24/2019 FINDINGS: There is stable ill-defined infiltrate throughout the right lung. There is stable faint infiltrate at the left lung base as well. No pneumothorax or pleural effusion. The heart size is normal. IMPRESSION: No change in the bilateral infiltrates, right greater than left. Electronically signed by Joshua Walter 06/25/2019 1:08 PM
--- NOTE | 2019-06-25 16:21 | DISCHARGE SUMMARY ---
ADMISSION DATE: 06/23/2019 DISCHARGE DATE: 06/25/2019 DISPOSITION: Stable. OBJECTIVE: Vital Signs: Blood pressure is 96/51, heart rate of 73, respiratory rate of 17, temperature is 98.7 degrees, 93% on room air. Cardiovascular: Regular rate and rhythm. Pulmonary: Bilateral breath sounds, clear to auscultation. DISCHARGE DIAGNOSIS: Unresponsiveness associated with probably a stimulant overdose, in this case amphetamines. The patient has had a history of cocaine exposure. He was somewhat hypoxic. His initial chest x-ray was negative but the repeat showed bilateral infiltrates. We ruled him out for congestive heart failure echo looked okay. Chest CT unfortunately was read as extensive bilateral infiltrates compatible with pneumonia or viral infection. Keep in mind during the duration of his visit here from June 22- the patient has had no fever. He has had some mild leukocytosis. Reportedly, he was unresponsive and had to have CPR. His procalcitonin is high, though, very high. In any case, he was evaluated and he had a Cardiology consult because he had a mild elevation in his troponin. It was felt that this is likely related to his poor perfusion, hypoxia and all that. He also was fairly hypertensive when he came in, so this could have been an episode of flash pulmonary edema, although his blood pressure was not that bad, but I do think he probably had a supply-demand mismatch issue. There was concern over possible viral syndrome because of the COVID-19 pandemic. Again, patient had no fevers. He was from the [facility] but had been there for a couple hours. He was screened, test is pending. Since he has improved and reportedly x-ray is stable, and I did get Pulmonary to evaluate him and it is felt that this was unlikely to be COVID. Since he had persistent infiltrates, though, I think we will treat him with antibiotics and they are more focal on the right side, from what I understand with COVID it should be more symmetrical like a true interstitial pneumonia, which is not the case here. He was discharged on Levaquin and Flagyl 500 t.i.d. and will be allowed back home. We will follow up on his COVID testing, hopefully will get that in the next 1 to 2 days. cc: Joel Garcia MD
[2019-06-25 17:01] VITALS: BP 113/68
== END 2019-06-25 18:35 | disposition home or self-care (01) | DRG 917 ==
LOC: SUPCPDRO → EDBD → ED 00:34 → EDIPHOLD 10:00 → 3N 12:28
PROVIDERS: ATTEND Internal Medicine